=== PATIENT | male | born 1970 | race Caucasian/White ===

== ENCOUNTER → 2016-10-17 | Outpatient (CLI) | payer OTHER ==
--- NOTE | 2016-10-17 17:55 | DIAGNOSTIC IMAGING REPORT ---
PROCEDURE: MR LOW EXT NONJOINT WO CON-RT INDICATION: RUPTURE OF RT MEDIAL HAMSTRING TECHNIQUE: Three plain T1, STIR, and PD fat saturated sequences focusing on the right mid hamstring. COMPARISON: None. FINDINGS: There is a rounded intramuscular hematoma with increased T1 and T2 signal within the anterolateral aspect of the semimembranosus muscle at the level of the proximal musculotendinous junction. Intramuscular hematoma measures approximately 6.2 x 2.5 x 2.8 cm. Sagittal images demonstrate some irregularity of the tendon as it courses into the muscle but without significant tendinous retraction to suggest complete avulsion. The proximal tendon from its ischial tuberosity origin appears normal. There is a mild amount of edema within the muscle and small amount of fascial edema along the anterior margin of the muscle. Mild subcutaneous edema along the posteromedial aspect of the leg. The adjacent sciatic nerve and demonstrates a normal course and signal. Distally semimembranosus tendon appears grossly normal although images of the knee are distorted secondary to metallic susceptibility artifact (prior ACL repair). IMPRESSION: 1. High-grade partial tendon tear of the semimembranosus at the proximal musculotendinous junction with a 6.2 cm subacute intramuscular hematoma.
== END ==
LOC: MRI SRH 13:36
DX: S76.311A Strain of muscle, fascia and tendon of the posterior muscle group at thigh level, right thigh, initial encounter (principal); M79.81 Nontraumatic hematoma of soft tissue